=== PATIENT | female | born 1975 | race African-American/Black ===

== ENCOUNTER 2018-11-20 20:00 | Emergency (ER) | payer SELFPAY ==
[2018-11-20] MEDS ORDERED: Acetaminophen 500 MG TAB ONE (20:24)
--- NOTE | 2018-11-20 20:33 | RAD ---
Radiograph right first digit 3 views: DATE: 11/20/2018 HISTORY: 43 year old female status post acute traumatic injury to right thumb FINDINGS: No fracture or dislocation. No high-grade DJD. No radiopaque foreign body. IMPRESSION: Negative.
== END 2018-11-20 20:45 | disposition home or self-care (01) ==
LOC: MADERS 20:00
DX: S63.602A Unspecified sprain of left thumb, initial encounter (principal); Z71.6 Tobacco abuse counseling; F17.210 Nicotine dependence, cigarettes, uncomplicated; X50.9XXA Other and unspecified overexertion or strenuous movements or postures, initial encounter
CPT/HCPCS: 29125; 99406

== ENCOUNTER 2024-04-10 11:59 | Emergency (ER) | payer OTHER, SELFPAY ==
[2024-04-10] MEDS ORDERED: Ketorolac Tromethamine 30 MG (1 mL) VIAL ONE (13:07)
== END 2024-04-10 13:30 | disposition home or self-care (01) ==
LOC: MADERS 11:59
DX: S40.011A Contusion of right shoulder, initial encounter (principal); I10 Essential (primary) hypertension; F17.210 Nicotine dependence, cigarettes, uncomplicated; W01.0XXA Fall on same level from slipping, tripping and stumbling without subsequent striking against object, initial encounter
CPT/HCPCS: 71045; 96372; J1885